=== PATIENT | female | born 1955 | race Caucasian/White ===

== ENCOUNTER 2017-05-05 09:39 | Emergency (ER) | payer OTHER ==
[~2017-05-05] VITALS: Ht 165.1 cm; Wt 83.9 kg
[~2017-05-05 09:39] MED LIST: CIPRO 500MG TA500 MG PO; FLOMAX(MONOGRA0.4 MG PO; PERCOCET 325 MG1 TA2 PO
--- NOTE | 2017-05-05 10:00 | ED UPPER/LOWER EXTREMITY COMPL ---
History of Present Illness General Chief Complaint: Upper Extremity Problem Stated Complaint: L SHOULDER AND ARM PAIN X 1 WEEEK Source: patient Exam Limitations: no limitations Vital Signs & Intake/Output Vital Signs & Intake/Output Vital Signs Date Time Temp Pulse Resp B/P B/P Pulse O2 O2 Flow FiO2 Mean Ox Delivery Rate 05/05 1131 98.1 88 20 140/80 98 Room Air 05/05 0944 98.4 89 18 168/93 98 Room Air Allergies Coded Allergies: MDX - Lactose (LACTOSE) (INTOLERANCE 04/07/11) Reconcile Medications Ciprofloxacin (Cipro) 500 MG TAB 1 TAB PO BID URINE INFECTION Gabapentin 300 MG CAPSULE 1 CAP PO TID NERVE PAIN OXYCODONE HCL/ACETAMINOPHEN (Percocet 5-325 MG Tablet) 325 MG/5 MG TAB 1-2 TAB PO Q4-6 PRN PRN PAIN Prednisone 10 MG TABLET 1 TAB PO DAILY RADICULAR PAIN 4 TABS PO X 3 DAYS, 3 TABS PO X 3 DAYS, 2 TABS PO X 3 DAYS, 1 TAB PO X 3 DAYS Tamsulosin Hydrochloride (Flomax) 0.4 MG CAP 1 TAB PO DAILY URETEROLITHIASIS Triage Note: 61 YO FEMALE TO TRIAGE C/O L ARM PAIN/NUMBESS. STATES SHE FELL ASLEEP ON HER HUSBANDS ARM LAST FRIDAY AND WOKE UP WITH PAIN TO THE L ARM. STATES THE PAIN IS ONLY IN THE UPPER ARM AND SHE HAS NUMBESS TO HER FOREARM. +PMS. DENIES CHEST PAIN/SOB. Triage Nurses Notes Reviewed? yes Onset: Gradual Duration: week(s): (1) Timing: no prior history Severity: moderate Severity Numbers: 7 Pain/Injury Location: Left: Arm, Shoulder, Elbow, Forearm. Method of Injury: sleeping on her husbands shoulder Modifying Factors: Improves With: immobilization. Worsens With: movement. HPI: Patient is a 61-year-old female with history of allergies presenting to the emergency department complaining of left arm numbness and tingling and pain has been going on for the past 1 week constantly. She reports it started after she woke up from falling asleep on her shoulder. Pain is worse with movement, taking on the computer and overhead positioning. Has been taking Advil on a regular basis for the past 5 days without relief. She has tried leftover oxycodone that she had from a knee surgery with little relief in the pain. Denies chest pain palpitations shortness of breath. Denies noticing any swelling of the upper extremity. Denies trauma besides falling asleep on her husbands shoulder. Denies history of similar symptoms in the past. Nares recent travel. No recent surgeries in the past 3 months. No palpitations. She does admit that she was recently seen by a chiropractor for this pain this past week and he did some adjustments on her, told her that it was not her rotator cuff. (Kiana Dee) Past History Travel History Traveled to [place] past 21 day No Medical History Any Pertinent Medical History? see below for history Neurological: NONE EENT: "CHRONIC ALLERGIES" Cardiovascular: NONE Respiratory: NONE Gastrointestinal: NONE Hepatic: NONE Renal: NONE Musculoskeletal: NONE Psychiatric: NONE Endocrine: NONE Blood Disorders: NONE Cancer(s): NONE HEALTH BENEFITS SPECIALIST/Reproductive: NONE Surgical History Surgical History: non-contributory Psychosocial History What is your primary language Moldovan Tobacco Use: Never used Family History Hx Contributory? No (Kiana Dee) Review of Systems Review of Systems Constitutional: Reports: no symptoms. Comments Review of systems: See HPI, All other systems negative. Constitutional, no chills fever or weight loss HEENT: No visual changes no sore throat no congestion Cardiovascular: No chest pain ,palpitation Skin, no jaundice no rashes Respiratory: No dyspnea cough sputum or hemoptysis GI: No nausea no vomiting : No dysuria No hematuria Muscle skeletal: no back pain Neurologic: no confusion and no headaches Psych: No stress anxiety or depression,. Heme/endocrine: No bruising no bleeding Immunology: No splenectomy or history of AIDS (Kiana Dee) Physical Exam Physical Exam General Appearance: well developed/nourished, no apparent distress, alert, awake , comfortable Comments: Well-developed well-nourished person in no acute distress HEENT: Normal atraumatic, normocephalic. Neck: Normal inspection, normal range of motion is full, some discomfort with lateral bending towards the right. Back: Mild tenderness to palpation over the left trapezius muscle. Cardiovascular: Regular rate and rhythms no murmurs rubs or gallops, normal JVP Respiratory: Chest nontender. No respiratory distress.breath sounds clear to auscultation bilaterally Extremity: No edema, radial pulses are 2+ bilaterally. Full range of motion of left upper extremity without difficulty, some discomfort with holding left arm overhead. Tenderness to palpation over the volar aspect of the left forearm. Pain with Phalen's testing. Capillary refill is intact in left upper extremity. Mild tenderness to palpation of the left biceps tendon. Full range of motion of left shoulder, left elbow, left wrist. Neuro: Alert oriented x3, motor intact in upper extremity bilaterally, slight decreased sensation noted on exam over the left forearm. Skin: No appreciable rash on exposed skin, skin is warm and dry. Psych: Mood and affect is normal, memory and judgment is normal. (Loco BEST,iKana) Progress Differential Diagnosis: contusion, dislocation, sprain, tendon injury, RADICULAR PAIN, CERVICAL RADICULOPATHY Plan of Care: Orders Procedure Date/time Status XRY-CHEST XRAY, TWO VIEWS 05/05 1017 Active 05/05/2017 11:29:36 AM patient is feeling improved after IM Toradol. Pain went from 12-10-5 out of 10. Neurovascularly intact. No obstructing lesion noted on chest x-ray. Patient will follow-up with neurology for further evaluation if symptoms persist. Educated on avoiding overuse of the left upper extremity. She'll return for any worsening symptoms or concerns. Patient nontoxic. Diagnostic Imaging: Viewed by Me: Radiology Read. Discussed w/RAD: Radiology Read. Radiology Impression: RESENT AGE: 61 PATIENT ACCOUNT NO: [id number] : 56 LOCATION: [facility] ORDERING PHYSICIAN: Kiana BEST SERVICE DATE: 05/05/17 EXAM TYPE: RAD - XRY-CHEST XRAY, TWO VIEWS EXAMINATION: XR CHEST CLINICAL INFORMATION: Left arm tingling. COMPARISON: Chest done on 04/07/2011. TECHNIQUE: 2 views of the chest were obtained. FINDINGS: Both lung flores are symmetrically expanded and appear clear. The cardiomediastinal silhouette is within normal limits. There is no pleural effusion present. The visualized upper abdomen is unremarkable. Degenerative changes are noted in the spine. No significant change. IMPRESSION: No acute cardiopulmonary disease. DICTATED BY: Dayami Kay MD DATE/TIME DICTATED:05/05/171110 TIP INSERTER:GRACIE DATE/ TIME TRANSCRIBED:05/05/171110 CONFIDENTIAL, DO NOT COPY WITHOUT APPROPRIATE AUTHORIZATION. <Electronically signed in Other Vendor System> SIGNED BY: Dayami Kay MD 05/05/17 1116 (Kiana Dee) Departure Departure Time of Disposition: 1122 Disposition: HOME OR SELF CARE Condition: Stable Clinical Impression Primary Impression: Radicular pain Secondary Impressions: Blood pressure elevated without history of HTN Referrals: Marichuy WITT,Kevin Samson Patient Has No Primary Care Dr Additional Instructions: Follow-up with neurology for further evaluation if symptoms persist. Take prednisone taper AND GABAPENTIN as prescribed. Avoid excessive use of the left arm as this can worsen symptoms. Return for worsening symptoms or concerns. Also follow up with your primary care physician regarding blood pressure reading. Slightly elevated today. Departure Forms: Customer Survey General Discharge Information Prescriptions: Current Visit Scripts Prednisone 1 TAB PO DAILY #30 TAB 4 TABS PO X 3 DAYS, 3 TABS PO X 3 DAYS, 2 TABS PO X 3 DAYS, 1 TAB PO X 3 DAYS Gabapentin 1 CAP PO TID #21 CAP (Kiana Dee) PA/ROLLER SKATE ASSEMBLER Co-Sign Statement Statement: ED Attending supervision documentation- [] I saw and evaluated the patient. I have also reviewed all the pertinent lab results and diagnostic results. I agree with the findings and the plan of care as documented in the PA's/ROLLER SKATE ASSEMBLER's documentation. [X] I have reviewed the ED Record and agree with the PA's/ROLLER SKATE ASSEMBLER's documentation. [] Additions or exceptions (if any) to the PAs/ROLLER SKATE ASSEMBLER's note and plan are summarized below: [] (Zen WITT,Boni Gonzalez)
--- NOTE | 2017-05-05 11:16 | RADIOLOGY REPORT ---
EXAMINATION: XR CHEST CLINICAL INFORMATION: Left arm tingling. COMPARISON: Chest done on 04/07/2011. TECHNIQUE: 2 views of the chest were obtained. FINDINGS: Both lung flores are symmetrically expanded and appear clear. The cardiomediastinal silhouette is within normal limits. There is no pleural effusion present. The visualized upper abdomen is unremarkable. Degenerative changes are noted in the spine. No significant change. IMPRESSION: No acute cardiopulmonary disease.
[2017-05-05] MEDS ORDERED: PREDNISONE10 M2 PO (11:25)
[2017-05-05] MEDS ORDERED: GABAPENTIN300 M2 PO (11:25)
[2017-05-05 11:31] VITALS: BP 140/80
== END 2017-05-05 11:32 ==
LOC: ERH 09:39
DX: M54.10 Radiculopathy, site unspecified (principal); R03.0 Elevated blood-pressure reading, without diagnosis of hypertension
CPT/HCPCS: 71046; 96372; J1885